=== PATIENT | female | born 1975 | race Caucasian/White ===

== ENCOUNTER → 2020-03-24 13:45 | Outpatient (BNVA) | payer OTHER, SELFPAY | PROVIDERS: Visit Provider Internal Medicine Endocrinology, Diabetes & Metabolism | DX: Z76.89 Persons encountering health services in other specified circumstances (principal) ==

== ENCOUNTER → 2020-05-04 09:46 | Outpatient (BNVA) | payer OTHER, SELFPAY | PROVIDERS: Visit Provider Internal Medicine Endocrinology, Diabetes & Metabolism | DX: Z76.89 Persons encountering health services in other specified circumstances (principal) ==

== ENCOUNTER → 2020-10-02 10:08 | Outpatient (BNVA) | payer OTHER, SELFPAY | PROVIDERS: Visit Provider Internal Medicine Endocrinology, Diabetes & Metabolism ==

== ENCOUNTER → 2021-03-31 09:20 | Outpatient (BNVA) | payer BC, SELFPAY | PROVIDERS: Visit Provider Internal Medicine ==

== ENCOUNTER 2021-04-14 14:31 | Outpatient (REF) | payer BC, SELFPAY ==
--- NOTE | ~2021-04-14 | US_ITS ---
EXAMINATION: US THYROID CLINICAL INFORMATION: Other specified hypothyroidism. COMPARISON: None TECHNIQUE: Linear transducer grayscale and color Doppler examination with attention to the region of the thyroid. FINDINGS: SIZE: Measurements of the thyroid lobes and nodules are given in sagittal, anteroposterior and transverse dimensions respectively. Right Thyroid Lobe: 3.8 x 1.2 x 1.3 cm, volume 3.1 mL. Parenchyma: The gland echotexture is heterogeneous. Thyroid vascularity is mildly increased. Left Thyroid Lobe: 3.9 x 1.0 x 0.9 cm, volume 1.8 mL. Parenchyma: The gland echotexture is heterogeneous. Thyroid vascularity is increased. Isthmus: 0.2 cm in maximum AP dimension. No focal thyroid nodule is seen. NODES: No lymphadenopathy is seen in the tissue surrounding the thyroid gland. US/US thyroid IMPRESSION: Very heterogeneous thyroid gland without focal nodules identified. There is increased vascularity consistent with thyroiditis. ACR TI-RADS RECOMMENDATION REFERENCE for thyroid nodules: Ultrasound-guided fine-needle aspiration, followup ultrasound, no further follow up. * TR1 (0 point) and TR 2 (2 points): No FNA or follow up * TR3 (3 points): FNA if more than or equal to 2.5 cm in maximum dimension, followup ultrasound in 1, 3 and 5 years if 1.5 to 2.4 cm in maximum dimension. * TR4 (4-6 points): FNA if more than or equal to 1.5 cm in maximum dimension, followup ultrasound in 1, 2, 3 and 5 years if 1 to 1.4 cm in maximum dimension. * TR5 (more than or equal to 7 points): FNA if more than or equal to 1 cm in maximum dimension, followup ultrasound every year for 5 years if 0.5 to 0.9 cm in maximum dimension. * TR3, TR4 or TR5 nodules that are below the size threshold for follow up receive no follow up.
[2021-04-14 16:43] LABS: Alanine Aminotransferase 14 U/L (0-31); Albumin Level 4.1 g/dL (3.5-5.0); Alkaline Phosphatase 57 U/L (39-117); Anion Gap 11 (12-20); Aspartate Amino Transferase 15 U/L (5-31); Bilirubin Total 0.3 mg/dL (0.0-1.0); Blood Urea Nitrogen 10 mg/dL (9-16); Calcium 8.7 mg/dL (8.4-10.2); Carbon Dioxide 26 mmol/L (22-29); Chloride 105 mmol/L (96-108); Estimated Glomerular Filt Rate > 60; Glucose Random 115 mg/dL (60-115); Potassium 3.9 mmol/L (3.3-5.1); Sodium 138 mmol/L (135-145); Total Protein 6.8 g/dL (6.5-8.0)
[2021-04-14 17:04] LABS: Free T4 (Free Thyroxine) 1.29 ng/dL (0.71-1.85); Thyroid Stimulating Hormone 0.37 uIU/mL (0.32-4.0); Vitamin D 25-OH Total 28.6 ng/mL (>30)
== END 2021-04-14 14:32 | disposition home or self-care (01) ==
LOC: HO.HMGCX 14:31
PROVIDERS: Visit Provider Internal Medicine
DX: E55.9 Vitamin D deficiency, unspecified (principal); E03.8 Other specified hypothyroidism; E06.3 Autoimmune thyroiditis; E66.9 Obesity, unspecified
CPT/HCPCS: 36415; 76536; 80053; 82306; 84439; 84443

== ENCOUNTER → 2021-07-12 14:57 | Outpatient (BNVA) | payer BC, SELFPAY | PROVIDERS: Visit Provider Internal Medicine ==

== ENCOUNTER 2021-08-05 07:02 | Outpatient (REF) | payer BC, SELFPAY ==
[2021-08-05 08:38] LABS: Estimated Average Glucose 103 mg/dL; Hemoglobin A1c % 5.2 %
[2021-08-05 08:39] LABS: Alanine Aminotransferase 11 U/L (0-31); Albumin Level 4.1 g/dL (3.5-5.0); Alkaline Phosphatase 53 U/L (39-117); Anion Gap 11 (12-20); Aspartate Amino Transferase 15 U/L (5-31); Bilirubin Total 0.7 mg/dL (0.0-1.0); Blood Urea Nitrogen 15 mg/dL (9-16); Calcium 9.5 mg/dL (8.4-10.2); Carbon Dioxide 25 mmol/L (22-29); Chloride 105 mmol/L (96-108); Cholesterol 191 mg/dL; Estimated Glomerular Filt Rate > 60; Glucose Random 104 mg/dL (60-115); HDL Cholesterol 57 mg/dL; LDL Cholesterol Calculated 114 mg/dl; Potassium 4.4 mmol/L (3.3-5.1); Sodium 137 mmol/L (135-145); Total Protein 6.8 g/dL (6.5-8.0); Triglycerides 100 mg/dL
[2021-08-05 09:02] LABS: Free T4 (Free Thyroxine) 1.42 ng/dL (0.71-1.85); Glucose Fasting 106 mg/dL (60-99); Thyroid Stimulating Hormone 0.74 uIU/mL (0.32-4.0); Vitamin D 25-OH Total 27.2 ng/mL (>30)
[2021-08-05 10:08] LABS: Glucose 1 Hour 152 mg/dL
[2021-08-05 10:21] LABS: Cortisol Random 10.6 ug/dL
[2021-08-05 10:41] LABS: Glucose 2 Hour 114 mg/dL
[2021-08-06 14:22] LABS: Adrenocorticotropic Hormone 25 pg/mL (6-50)
[2021-08-06 16:36] LABS: LDL Cholesterol Direct 116 mg/dL (<100)
== END 2021-08-05 07:03 | disposition home or self-care (01) ==
LOC: HO.LAB 07:02
PROVIDERS: PCP Physician Assistant Medical; Visit Provider Internal Medicine
DX: E66.9 Obesity, unspecified (principal); E55.9 Vitamin D deficiency, unspecified
CPT/HCPCS: 36415; 80053; 80061; 82024; 82306; 82533; 83036; 83721; 84439; 84443

== ENCOUNTER → 2021-09-23 10:30 | Outpatient (BNVA) | payer BC, SELFPAY | PROVIDERS: Visit Provider Internal Medicine | DX: Z13.89 Encounter for screening for other disorder (principal) ==

== ENCOUNTER 2022-07-02 14:29 | Outpatient (REF) | payer BC, SELFPAY ==
[2022-07-02 15:29] LABS: Alanine Aminotransferase 34 U/L (0-31); Albumin Level 4.2 g/dL (3.5-5.0); Alkaline Phosphatase 57 U/L (39-117); Anion Gap 12 (12-20); Aspartate Amino Transferase 21 U/L (5-31); Bilirubin Total 0.6 mg/dL (0.0-1.0); Blood Urea Nitrogen 13 mg/dL (9-16); Calcium 9.5 mg/dL (8.4-10.2); Carbon Dioxide 26 mmol/L (22-29); Chloride 108 mmol/L (96-108); Estimated Glomerular Filt Rate > 60; Glucose Random 90 mg/dL (60-115); Sodium 142 mmol/L (135-145); Total Protein 6.7 g/dL (6.5-8.0)
[2022-07-02 15:45] LABS: Free T4 (Free Thyroxine) 1.82 ng/dL (0.71-1.85); Thyroid Stimulating Hormone 0.06 uIU/mL (0.32-4.0); Vitamin D 25-OH Total 37.3 ng/mL (>30)
== END 2022-07-02 14:30 | disposition home or self-care (01) ==
LOC: HO.HMGCLDS 14:29
PROVIDERS: Visit Provider Internal Medicine
DX: E03.8 Other specified hypothyroidism (principal); E06.3 Autoimmune thyroiditis; E55.9 Vitamin D deficiency, unspecified; R73.02 Impaired glucose tolerance (oral)
CPT/HCPCS: 36415; 80053; 82306; 84439; 84443

== ENCOUNTER → 2022-07-04 07:18 | Outpatient (BNVA) | payer BC, SELFPAY | PROVIDERS: PCP Family Medicine; Visit Provider Internal Medicine | DX: Z13.89 Encounter for screening for other disorder (principal) ==

== ENCOUNTER 2022-08-20 10:16 | Outpatient (REF) | payer BC, SELFPAY ==
[2022-08-20 12:04] LABS: Alanine Aminotransferase 22 U/L (0-31); Albumin Level 4.1 g/dL (3.5-5.0); Alkaline Phosphatase 56 U/L (39-117); Anion Gap 10 (12-20); Aspartate Amino Transferase 20 U/L (5-31); Bilirubin Direct 0.2 mg/dL (0.0-0.5); Bilirubin Total 0.8 mg/dL (0.0-1.0); Blood Urea Nitrogen 16 mg/dL (9-16); Calcium 8.9 mg/dL (8.4-10.2); Carbon Dioxide 26 mmol/L (22-29); Chloride 108 mmol/L (96-108); Estimated Glomerular Filt Rate > 60; Glucose Random 83 mg/dL (60-115); Potassium 4.1 mmol/L (3.3-5.1); Sodium 140 mmol/L (135-145); Total Protein 6.6 g/dL (6.5-8.0)
[2022-08-20 12:20] LABS: Free T4 (Free Thyroxine) 1.29 ng/dL (0.71-1.85); Thyroid Stimulating Hormone 1.73 uIU/mL (0.32-4.0); Vitamin D 25-OH Total 27.8 ng/mL (>30)
== END 2022-08-20 10:17 | disposition home or self-care (01) ==
LOC: HO.HMGCLDS 10:16
PROVIDERS: PCP Family Medicine; Visit Provider Internal Medicine
DX: R73.02 Impaired glucose tolerance (oral) (principal); R74.01 Elevation of levels of liver transaminase levels; E06.3 Autoimmune thyroiditis; E03.8 Other specified hypothyroidism; E55.9 Vitamin D deficiency, unspecified
CPT/HCPCS: 36415; 80048; 80076; 82306; 84439; 84443

== ENCOUNTER 2023-01-02 07:41 | Outpatient (AMB) | payer BC, SELFPAY ==
--- NOTE | 2023-01-02 07:41 | MHC.OFFVIS ---
Intake Intake Visit Reasons: Discuss labs Intake Note: Discuss labs. Tomato Pulper Operator Required: No Allergies sumatriptan [From IMITREX] Allergy (Severe, Verified 01/02/23 07:52) DECREASED HEART RATE AND CHEST PRESSURE acetaminophen [From PERCOCET] Allergy (Intermediate, Verified 01/02/23 07:52) NAUSEA AND VOMITING oxycodone [From PERCOCET] Allergy (Intermediate, Verified 01/02/23 07:52) NAUSEA AND VOMITING sertraline [From ZOLOFT] Adverse Reaction (Intermediate, Verified 01/02/23 07:52) INCREASED ANXIETY Medication List - Last Reconciled 01/02/23 by Lory Sam, atorvastatin 40 mg PO BEDTIME cholecalciferol (vitamin D3) 50 mcg PO DAILY gabapentin 100 mg PO DAILY hydroxyzine pamoate 25 mg PO TID levothyroxine 125 mcg PO DAILY 30 days metformin ER 1,000 mg (2 x 500 mg) PO BID 30 days omeprazole 20 mg PO QAM pen needle, diabetic (BD Ultra-Fine Micro Pen Needle) once daily semaglutide (weight loss) (Wegovy) 1 mg (0.5 mL) subcut QWEEK 4 weeks HPI HPI Comments History of Present Illness Details 46 YO Female with a PMHx of hypothyroidism and obesity and hypothyroidism who is seen in F/U. She was previously followed by Dr. Osman. She has a history of hypothyroidism and remains on levothyroxine 125 mcg 1 tab PO daily with a half a tab on Monday. TFTs are in the hyperthyroid range. She does report symptoms of anxiety and palpitations. She also has a history of obesity. She tried phentermine in the past, but did not experience significant appetite reduction so she stopped this of her own accord. She then was prescribed Saxenda but found no decrease in appetite with this. She was switched to wegovy and remains on the 1.0 mg dose at this time. She has lost 25 lbs. She has been following a calorie restricted diet of 9420-5506 calories per day. She did have labs which revealed an elevated fasting glucose, indicating impaired glucose tolerance. Her 2 hour OGTT was WNL. Labs: Laboratory Tests 07/02/22 14:49 Sodium 142 Potassium 4.0 Creatinine 0.80 Estimated GFR > 60 AST 21 ALT 34 H 25-OH Vitamin D To jacinda 37.3 TSH 0.06 L Free T4 1.82 [facility] Medical History Chronic allergic rhinitis Dyslipidemia Hypothyroidism Impaired glucose tolerance Increased appetite Obesity (BMI 30-39.9) Restless leg syndrome Transaminitis Vitamin D deficiency Surgical History Hx of section Hx of esophagogastroduodenoscopy Hx of tubal ligation Family History Father High blood cholesterol Hypertension Mother Thyroid disease Arthritis Chronic insomnia Social History Alcohol intake: never Patient Tobacco Use Status: Never used Tobacco Assessment & Plan Assessment & Plan (1) Obesity (BMI 30-39.9): Code(s): E66.9 - Obesity, unspecified Plan: Patient with obesity. Today we extensively reviewed dietary goals of eating 1200 calories per day, and accurately counting calories. I also advised 30 minutes of moderate intensity exercise 3-5 days per week, in addition to a goal of 10,000 steps per day. Will increase her wegovy to 1.7 mg once a week. I advised she decrease the carbs in her diet and notify me of any abdominal pain. She will F/U in 3 months time. All of her questions were answered. She is in agreement with this plan of care. I spent 20 minutes in reviewing the record, seeing the patient and documenting in the medical record, including 5 minutes on the phone with the patient. 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 No changes. (3) Impaired glucose tolerance: Code(s): R73.02 - Impaired glucose tolerance (oral) Plan: Patient with impaired glucose tolerance based on elevated fasting sugar. She stopped all medication of her own accord. Will attempt Wegovy and assess for improvement. (4) Transaminitis: Code(s): R74.01 - Elevation of levels of liver transaminase levels Plan: will repeat now. (5) Vitamin D deficiency: Code(s): E55.9 - Vitamin D deficiency, unspecified Plan: Will repeat Vitamin D levels with her next set of labs and reassess. Medications: New semaglutide (weight loss) (Wegovy) administer weeks 13 through 16 of therapy 1.7 mg (0.75 mL) subcut QWEEK 30 days 3.75 mL 3RF R73.02 - Impaired glucose tolerance (oral) Discontinued metformin ER Discontinued Reason: Doctor's Order 1,000 mg (2 x 500 mg) PO BID 30 days 120 tabs 11RF R73.02 - Impaired glucose tolerance (oral) semaglutide (weight loss) (Wegovy) administer weeks 9 through 12 of therapy Discontinued Reason: Doctor's Order 1 mg (0.5 mL) subcut QWEEK 4 weeks 2 mL 0RF Telehealth Telehealth Location of provider rendering services: practice address Location of patient: address on file Patient Identification confirmed using: Name, : Yes Telehealth method: voice only Patient verbally consented to treatment: Yes Patient verbally consented to billing insurance company: Yes Patient informed of any privacy concerns related to visit: Yes Coding Level of Care Code Tele Est Pt Level 3 (10979) Diagnoses Obesity (BMI 30-39.9) E66.9 Hypothyroidism E03.8; E06.3 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
--- OUTSIDE RECORDS SUMMARY | 2023-01-02 07:42 | XMS_ITS | Continuity of Care Document ---
Author Name Unknown Organization [facility] Address [address] [place] [address]- Care Team Providers Care Manager Testing Name Role Phone Gisela SANCHEZ, Jannette Blake Primary Care Physicia n Encounter [facility] [place] Date(s): 05/10/22 - 06/09/22 [facility] [address] [place] [address]- Allergies, Adverse Reactions, Alerts Substance Reaction Severity Status haloperidol 1 ITCH full body itch. mild rash/hives to bilateral arms Acti ve Zoloft anxious Active Percocet vomiting Active Imitrex chest pressure, slow heart rate Active 1POSSIBLE ALLERGY TO HALDOL . patient recieved haldol while in PACU for Daystay procedure. roughly 40 minutes later she started itching all over, and had a mild rash/ non-raised hives present to her arms. I spoke with Attending Anesthesia Yuri Gilman regarding pt situation. Immunizations Given and Recorded Vaccine Date Status Refusal Reason tetanus/diphtheria/pertussis, acel(Tdap) 1 05/12/13 Given 1Admin Note: vis given Medications Biotin By Mouth, Daily, 0 Refills, Maintenance, 10/05/20 8:02:00 EDT, Partial fill upon patient request ifthe prescription is for a schedule II opioid drug. Start Date: 10/05/20 Status: Ordered ferrous sulfate 325 mg oral enteric coated tablet 325 mg, 1, tablet, By Mouth, Daily, # 90 tablet, Refills 0, Tot. Refills 0, Maintenance, 11/10/20 18:12:00 EDT, Route to Pharmacy Electronically, [id number], Partial fill upon patient request if the prescription is for a schedule II opio... Start Date: 11/10/20 Status: Ordered Fish Oil By Mouth, 0 Refills, Maintenance, 10/05/20 8:01:00 EDT, Partial fill upon patient request if the prescription is for a schedule II opioid drug. Start Date: 10/05/20 Status: Ordered hydrOXYzine hydrochloride 25 mg oral tablet 1 tablet = 25 mg, By Mouth, 3 times a day, PRN for anxiety, # 40 tablet, 0 Refills, Maintenance, 11/19/19 15:04:00 EDT, Tablet Start Date: 11/19/19 Status: Ordered levothyroxine 0.15 mg oral tablet By Mouth, Daily in AM, 0 Refills, Maintenance, 06/08/20 17:49:00 EST, Partial fill upon patient request if the prescription is for a schedule II opioid drug. Start Date: 06/08/20 Status: Ordered Lipitor 40 mg oral tablet 1 tablet = 40 mg, By Mouth, Daily at bedtime, 0 Refills, Maintenance, 11/19/19 15:05:00 EDT Start Date: 11/19/19 Status: Ordered metoprolol 25 mg oral tablet, extended release 25 mg, 1, tablet, By Mouth, 2 times a day, # 60 tablet, Refills 3, Tot. Refills 3, Maintenance, 11/04/20 12:58:00 EDT, Route to Pharmacy Electronically, [id number], Partial fill upon patient request if the prescription is for a schedule... Start Date: 11/04/20 Stop Date: 03/04/21 Status: Ordered Misc Rx Refills 0, Maintenance, 10/05/20 8:02:00 EDT, Supply Start Date: 10/05/20 Status: Ordered Multi Vitamin+ 0 Refills, Maintenance, 10/05/20 8:01:00 EDT, Partial fill upon patient request if the prescriptionis for a schedule II opioid drug. Start Date: 10/05/20 Status: Ordered norethindrone 5 mg oral tablet 5 mg, 1, tablet, By Mouth, Daily, # 30 tablet, Refills 0, Maintenance, 11/19/19 15:06:00 EDT Start Date: 11/19/19 Status: Ordered Vitamin D2 2000 intl units oral capsule 1 capsule = 2,000 International_Units, By Mouth, Daily, with food. Repeat Vit D level in 3 months, # 60 capsule, 1 Refills, Maintenance, 11/10/20 18:11:00 EDT, Capsule, [facility], Partial fill upon patient request if the prescription i... Start Date: 11/10/20 Status: Ordered Problem List Condition Confirmation Course Effective Dates Status Health St atus Informant Obese class I Confirmed Active Patient Care team information Care Team Personnel Name: Gisela SANCHEZ, Jannette Blake Position: Reference Physician Member Role: PCP Address: Address: [address] [place] [address] [place] [address]- Care Team Related Persons Name: TOPHER CHAKRABORTY Address: home [address] [address] Name: HELEN CAMPBELL Address: home [address] [place] [address]
--- OUTSIDE RECORDS SUMMARY | 2023-01-02 07:42 | XMS_ITS | Continuity of Care Document ---
Author Name Unknown Organization [facility] Address [address] [place] [address]- Care Team Providers Care Compliance Consultant Name Role Phone Gisela SANCHEZ, Jannette Blake Primary Care Physicia n [place] [facility] [place] - 05/08/[address] [address]- Allergies, Adverse Reactions, Alerts Substance Reaction Severity [...] Reference Physician Member Role: PCP Address: Address: [address] [place] [address] [place] [address]- Care Team Related Persons Name: TOPHER CHAKRABORTY Address: home [address] [place] [address] Name: HELEN CAMPBELL Address: home [address] [place] [address]
--- OUTSIDE RECORDS SUMMARY | 2023-01-02 07:42 | XMS_ITS | Continuity of Care Document ---
Author Name Unknown Organization [facility] Address [address] [place] [address]- Care Team Providers Care Warehouse Administrator Name Role Phone Gisela SANCHEZ, Jannette Blake Primary Care Physicia n En[place] [facility] [place]s): 08/06/22 - 09/05/22 [facility] [address] [place] [address]- Attending Physician: Jocelynn Ponce Admitting Physician: Jocelynn Ponce Referring Physician: AdmtrJocelynn Allergies, Adverse Reactions, Alerts Substance Reaction Severity [...] and Recorded Vaccine Date Status Refusal Reason influenza virus vaccine, inactivated 02/24/22 Cal rded SARS-CoV-2 (COVID-19) mRNA BNT-162b2 vac 05/19/21 Recorded SARS-CoV-2 (COVID-19) mRNA BNT-162b2 vac 08/29/20 Recorded tetanus/diphtheria/pertussis, acel(Tdap) 1 05/12/13 Given 1Admin Note: vis given Medications hydrOXYzine hydrochloride 25 mg oral tablet 1 [...] 15:05:00 EDT Start Date: 11/19/19 Status: Ordered Misc Rx Refills 0, Maintenance, 10/05/20 8:02:00 EDT, Supply Start Date: 10/05/20 Status: Ordered Problem List Condition Confirmation Course Effective Dates Status Health St atus Informant Obese class I Confirmed Active Patient Care team information Care Team Personnel Name: Jannette Higgins MD Position: Reference Physician Member Role: PCP Address: Address: [address] [place] [address] [place] [address]- Care Team Related Persons Name: TOPHER CHAKRABORTY Address: home [address] [place] [address] Name: HELEN CAMPBELL Address: home [address] [place] [address]
--- OUTSIDE RECORDS SUMMARY | 2023-01-02 07:42 | XMS_ITS | Continuity of Care Document ---
Author Name Unknown Organization [facility] Address [address] [place] [address]- Care Team Providers Care Clinical Unit Coordinator Name Role Phone Gisela SANCHEZ, Jannette Blake Primary Care Physicia n [place] [facility] [place] - 05/12/[address] [address]- Attending Physician: Jocelynn Ponce Admitting Physician: Jocelynn [...] Reference Physician Member Role: PCP Address: Address: [address] [place] [address] [place] [address]- Care Team Related Persons Name: TOPHER CHAKRABORTY Address: home [address] [address] Name: HELEN CAMPBELL Address: home [address] [place] [address]
--- OUTSIDE RECORDS SUMMARY | 2023-01-02 07:43 | XMS_ITS | Continuity of Care Document ---
Author Name Unknown Organization [facility] Address [address], [address], [address] [place] [address]- Care Team Providers Care Optometric Coordinator Name Role Phone Gisela SANCHEZ, Jannette Blake Primary Care Physicia n Encounter [facility] [place] Date(s): 10/13/22 - 11/12/22 [facility] [address], [address], [address] [place] [address]- Allergies, Adverse Reactions, Alerts Substance Reaction Severity [...] Reference Physician Member Role: PCP Address: Address: [address] [place] [address] [place] [address]- Care Team Related Persons Name: TOPHER CHAKRABORTY Address: home [address] [place] [address] Name: HELEN CAMPBELL Address: [address] [facility] [facility] [address]
--- OUTSIDE RECORDS SUMMARY | 2023-01-02 07:43 | XMS_ITS | Continuity of Care Document ---
Author Name Unknown Organization [facility] Address [address] [place] [address]- Care Team Providers Care Skip Load Driver Name Role Phone Gisela SANCHEZ, Jannette Blake Primary Care Physicia n Encounter [facility] [place] Date(s): 02/26/22 - 03/28/22 [facility] [address] [place] [address]- Attending Physician: Jocelynn Ponce Admitting Physician: Jocelynn Ponce Referring Physician: AdmtrJocelynn Allergies, Adverse Reactions, Alerts Substance Reaction Severity Status haloperidol 1 ITCH full body itch. mild rash/hives to bilateral arms Acti ve Imitrex chest pressure, slow heart rate Active Zoloft anxious Active Percocet vomiting Active 1POSSIBLE ALLERGY TO HALDOL . patient [...] I Confirmed Active Patient Care team information Personnel Name: Gisela SANCHEZ, Jannette Blake Address: Address: [address] [place] [address]
--- OUTSIDE RECORDS SUMMARY | 2023-01-02 07:43 | XMS_ITS | Continuity of Care Document ---
Author Name Unknown Organization [facility] Address [address] [place] [address]- Care Team Providers Care [place] Operator Name Role Phone Gisela SANCHEZ, Jannette Blake Primary Care Physicia n [place] [facility] [place](s): 04/25/22 - 05/25/[address] [address]- Allergies, Adverse Reactions, Alerts Substance Reaction Severity Status haloperidol 1 ITCH full body itch. mild rash/hives to bilateral arms Acti ve Percocet vomiting Active Imitrex chest pressure, slow heart rate Active Zoloft anxious Active 1POSSIBLE ALLERGY TO HALDOL . patient [...] Reference Physician Member Role: PCP Address: Address: [address] [place] [address] [place] [address]- Care Team Related Persons Name: TOPHER CHAKRABORTY Address: home [address] [place] [address] Name: HELEN CAMPBELL Address: home [address] [place] [address]
--- OUTSIDE RECORDS SUMMARY | 2023-01-02 07:44 | XMS_ITS | Continuity of Care Document ---
Author Name Unknown Organization [facility] al Address [address] [place] [address]- Care Team Providers Care Stockholder Name Role Phone Gisela SANCHEZ, Jannette Blake Primary Care Physicia n Encounter [facility] Date(s): 08/26/22 - 08/26/[address] [address]- Encounter Diagnosis Abdominal pain(Final) - 08/26/22 Discharge Disposition: A-D/C Home Attending Physician: Shivam Serrano MD Admitting Physician: Shivam Serrano MD Referring Physician: Not on Staff, Referring MD Allergies, Adverse Reactions, Alerts Substance Reaction Severity [...] 05/12/13 Given 1Admin Note: vis given Medications cefpodoxime 100 mg oral tablet 1 tablet = 100 mg, By Mouth, Every 12 hours, for 10 days, # 20 tablet, 0 Refills, Acute 09/05/22 12:20:00 EDT, 08/26/22 12:20:00 EDT, Tablet, [facility], Partial fill upon patient request if the prescription is for a schedule II opioid d... Start Date: 08/26/22 Stop Date: 09/05/22 Status: Ordered hydrOXYzine hydrochloride 25 mg oral [...] EDT, Supply Start Date: 10/05/20 Status: Ordered Toradol Inj 15 mg, Injection, IV Push Slowly, Once, STAT, 08/26/22 9:23:00 EDT, Stop date 08/26/22 9:23:00 EDT Start Date: 08/26/22 Stop Date: 08/26/22 Status: Completed Problem List Condition Confirmation Course Effective Dates Status [facility] at Informant Obese class I Confirmed Active Results Radiology Reports * Exam Date Time Procedure Performing Provider Status 08/26/22 10:[address] Abdomen and Pelvi s W/O Contrast Gee Echols; Auth (Verified) Notes: (CT Abdomen and Pelvis W/O Contrast) Reason For Exam: Flank pain, kidney stone suspected;Other: RESULT: CT Abdomen and Pelvis W/O Contrast CT Abdomen and Pelvis W/O Contrast Hx of Present Illness: seen 2 weeks ago at urgent care +UTI, finished abx but pain returned, worsening RLQ radiating to back, dysuria. Chills at home last night; Reason: Other:; Flank pain, kidney stone suspected; Clinical Question(s): Calculus; Right Side flank TECHNIQUE: Spiral CT through the abdomen and pelvis without IV contrast formatted in 3 planes. Thisstudy was performed without oral contrast. Weight- based protocol using automatic tube modulation was used to optimize exposure parameters. CTDIvol Body: 14.59 mGy, DLP Body: 657 mGy*cm. COMPARISON: 11/22/2021 FINDINGS: Corrections Caseworker View Findings, Lines and Tubes: None. Visualized Chest: Left lower lobe atelectasis. No pleural effusion. The heart is normal in size. Nopericardial effusion. Diaphragm: Normal. Liver: Normal. Gallbladder: No CT evidence of gallbladder pathology. Bile ducts: No biliary ductal dilation. Spleen: Normal. Pancreas: Normal. Adrenal glands: Normal. Kidneys and ureters: There is prominent right renal collecting system ureter extending to the levelof the bladder. No obstructing stone is identified. The left kidney is unremarkable. Bladder: Normal. Reproductive organs: There is a 4.7 x 3.5 cm left ovarian cyst.. Stomach, small bowel, and large bowel: Normal. Appendix: Normal. Peritoneum and retroperitoneum: No ascites or pneumoperitoneum. No omental or mesenteric lesions. Lymph nodes: No enlarged lymph nodes. Blood vessels: Normal. No aneurysm. Abdominal and pelvic wall: Unremarkable. Bones: No acute abnormality. IMPRESSION: Prominent right renal collecting system and ureter without evidence of obstructive stone. This may be related to pyelonephritis or recently passed stone. Consider contrast enhanced CT for better evaluation. 4.7 x 3.5 cm left ovarian cyst. Recommend pelvic ultrasound for further evaluation. A critical result message (Porter) has been communicated via the [employer] system on 08/26/2022 11:42 AM, Message ID [id number]. WSN: [id number] Ordering Physician: Shivam Serrano Dictated By: Harsh Brody MD Dictated Date/Time: 08/26/22 11:43 a Reviewed By: Harsh Brody MD Signed By: Harsh Brody MD Signed Date/Time: 08/26/22 11:43 am Transcribed By: IQRA Transcribed Date/Time: 08/26/22 11:20 am Vital Signs Most recent to oldest [Reference Range]: 1 2 3 Height 153 cm (08/26/22 10:41 AM) 153 cm (08/26/22 8:53 AM) 153 cm (08/26/22 8:50 AM) Weight 77.7 kg (08/26/22 10:41 AM) 77.7 kg (08/26/22 8:53 AM) 77.7 kg (08/26/22 8:50 AM) Oxygen Saturation [94-100 %] 100 % (08/26/22 10:41 AM) 98 % (08/26/22 8:50 AM) Pulse Rate [55-90 bpm] 76 bpm (08/26/22 10:41 AM) 95 bpm *H* (08/26/22 8:50 AM) Body Mass Index [18.5-24.99 kg/m2] 33.19 kg/m2 *>HHI* (08/26/22 10:41 AM) 33.19 kg/m2 *>HHI* (08/26/22 8:50 AM) Blood Pressure [90-138/55-84 mm Hg] 99/64mm Hg (08/26/22 10:41 AM) 125/63mm Hg (08/26/22 8:50 AM) Respiratory Rate [16-30 br/min] 18 br/min (08/26/22 10:41 AM) 16 br/min (08/26/22 10:09 AM) 17 br/min (08/26/22 8:50 AM) Temperature [96.8-100.4 DegF] 97.6 DegF (08/26/22 10:41 AM) 97.6 DegF (08/26/22 8:50 AM) Mode of Delivery (Oxygen) Room air (08/26/22 10:41 AM) Room air (08/26/22 8:50 AM) Blood pressure sites Arm, right (08/26/22 10:41 AM) Arm, left (08/26/22 8:50 AM) Temperature Route Temporal (08/26/22 10:41 AM) Temporal (08/26/22 8:50 AM) Dry Weight 77.7 kg (08/26/22 10:41 AM) 77.7 kg (08/26/22 8:53 AM) 77.7 kg (08/26/22 8:50 AM) Weight Obtained Via Standing scale (08/26/22 8:50 AM) Dry Weight Obtained Via Standing scale (08/26/22 8:50 AM) Note * Maggie SANCHEZ, Shivam Munoz: PERFORM Event Display: Patient Education Leaflets Authored Date: [id number] Kidney Infection (Adult Female) ?? [id number] Kidney Infection (Adult Female) An infection in 1 or both kidneys is called pyelonephritis. It usually happens when bacteria get into the kidney. Rarely it is caused when other germs, such as viruses, fungi, or other disease-causing organisms get into the kidney. The bacteria or other disease-causing organisms can enter the kidneys from the bladder or blood traveling from other parts of the body. A kidney infection can become serious. It can cause severe illness, scarring of the kidneys, or kidney failure if not treated correctly. Common causes for this problem include: ??? Not keeping the genital area clean and dry, which promotes the growth of bacteria ??? Wiping back to front. This drags bacteria from the rectum toward the urinary opening (urethra). ??? Wearing tight pants or underwear. This lets moisture build up in the genital area, which helps bacteria grow.??? Holding pee (urine) in for long periods of time ??? Dehydration ??? Urinary tract infections ??? Blockages of pee draining from the kidney, such as a kidney stone Kidney infections can cause symptoms similar to a bladder infection. Symptoms include: ??? Pain or burning feeling when peeing ??? Having to pee more often than normal ??? Blood in the pee (pink or red) ??? Belly (abdominal) pain or discomfort, usually in the lower belly ??? Pain in the side or back ??? Pain above the pubic bone ??? Fever or chills ??? Vomiting ??? Loss of appetite Treatment is oral antibiotics. More severe cases are treated with IM (intramuscular) or IV (intravenous) antibiotics. These are started right away and may be changed once urine culture results show the infecting organisms. Treatment helps prevent a more serious kidney infection. Symptoms of kidney i nfections can vary based on your age. Medicines Medicines can help in the treatment of a bladder infection: ??? Take antibiotics exactly as prescribed and until they are used up, even if you feel better. It's important to finish them to make sure the infection is gone. ??? Unless another medicine was prescribed, you can use [id number]-[id number] medicines for pain, fever, or discomfort. If you have chronic liver of kidney disease, talk with your [facility] provider before using these medicines. Also talk with your provider if you've ever had a stomach ulcer or digestive bleeding. Or if you are taking blood thinners. ?? Home care Here are some general care guidelines: ??? Stay home from work or school. Rest in bed until your fever breaks and you are feeling better, or as advised by your healthcare provider. ??? Drink lots of fluid unless you must restrict fluids for other medical reasons. This will force the medicine into your urinary system and flush the bacteria out of your body. Ask your provider how much you should drink. ??? Don't have sex until you have f inished all of your medicine and your symptoms are gone. ??? Don't have??caffeine, alcohol, or spicy foods. These foods may irritate the kidneys and bladder. ??? Don't take bubble baths. Sensitivity to the chemicals in bubble baths can irritate the urethra. ??? Make sure you wipe from front to backafter using the toilet. ??? Wear loose clothes and cotton underwear. Prevention These self-care steps can help prevent future infections: ??? Drink plenty of fluids to prevent dehydration and flush out the bladder. Do this unless you must restrict fluids for other health reasons, or your healthcare provider told you not to. ??? Make sure you wipe from front to back after usingthe toilet. ??? Pee more often. Don't try to hold pee in for a long time. ??? Don't wear tight-fitti ng pants and underwear. ??? Improve your diet to prevent constipation. Eat more fruits, vegetables,and fiber. Eat less junk and fatty foods. Constipation can make a urinary tract infection more likely. Talk with your healthcare provider if you have trouble with bowel movements. ??? Pee right aftersex to flush out the bladder. ?? Follow-up care Follow up with your healthcare provider, or as advised. Additional testing may be needed to make sure the infection has cleared. Close follow-up and further testing is very important to find the cause and to prevent future infections. If a urine culture was done, you will be contacted if your treatment needs to be changed. If directed, you may call to find out the results. If you had an X-ray, CT scan, or other diagnostic test, you will be told of any new findings that may affect your care. Call 911 Call 911 if any of the following occur: ??? Trouble breathing ??? Fainting or loss of consciousness??? Fast or very slow heart rate ??? Weakness, dizziness, or fainting ??? Trouble waking up or confusion ?? When to get medical care Call your healthcare provider right away if any of these occur: ??? Fever 100.4??F (38??C) or higher, or as advised by your provider ??? Not feeling better or symptoms get worse 1 to 2 days after starting antibiotics ??? Any symptom that lasts after 3 days of treatment ??? More pain in the stomach,back, side, or groin area ??? Repeated vomiting ??? Not able to take prescribed medicine due to nausea or another reason ??? Bloody, dark-colored, or bad- smelling pee ??? Trouble peeing or peeing less than normal ??? No pee for 8 hours, no tears when crying, confusion, sunken eyes, or dry mouth ?? Last Reviewed Date: 2022 ?? [id number] [employer]. All rights reserved. This information is not intended as a substitute for professional medical care. Always follow your healthcare professional's instructions. ?? CT Abdomen and Pelvis WO contrast * BHSPowerscriraad , CIS S: TRANSCRIRAAD Brody MD, Harsh H: VERIFY Event Display: Result: Authored Date: [id number] CT Abdomen and Pelvis W/O Contrast Hx of Present Illness: seen 2 weeks ago at urgent care +UTI, finished abx but pain returned, worsening RLQ radiating to back, dysuria. Chills at home last night; Reason: Other:; Flank pain, kidney stone suspected; Clinical Question(s): Calculus; Right Side flank TECHNIQUE: Spiral CT through the abdomen and pelvis without IV contrast formatted in 3 planes. Thisstudy was performed without oral contrast. Weight- based protocol using automatic tube modulation was used to optimize exposure parameters. CTDIvol Body: 14.59 mGy, DLP Body: 657 mGy*cm. COMPARISON: 11/22/2021 FINDINGS: Corrections Caseworker View Findings, Lines and Tubes: None. Visualized Chest: Left lower lobe atelectasis. No pleural effusion. The heart is normal in size. Nopericardial effusion. Diaphragm: Normal. Liver: Normal. Gallbladder: No CT evidence of gallbladder pathology. Bile ducts: No biliary ductal dilation. Spleen: Normal. Pancreas: Normal. Adrenal glands: Normal. Kidneys and ureters: There is prominent right renal collecting system ureter extending to the levelof the bladder. No obstructing stone is identified. The left kidney is unremarkable. Bladder: Normal. Reproductive organs: There is a 4.7 x 3.5 cm left ovarian cyst.. Stomach, small bowel, and large bowel: Normal. Appendix: Normal. Peritoneum and retroperitoneum: No ascites or pneumoperitoneum. No omental or mesenteric lesions. Lymph nodes: No enlarged lymph nodes. Blood vessels: Normal. No aneurysm. Abdominal and pelvic wall: Unremarkable. Bones: No acute abnormality. IMPRESSION: Prominent right renal collecting system and ureter without evidence of obstructive stone. This may be related to pyelonephritis or recently passed stone. Consider contrast enhanced CT for better evaluation. 4.7 x 3.5 cm left ovarian cyst. Recommend pelvic ultrasound for further evaluation. A critical result message (Porter) has been communicated via the [employer] system on 08/26/2022 11:42 AM, Message ID [id number]. WSN: [id number] Ordering Physician: Shivam Serrano Dictated By: Harsh Brody MD Dictated Date/Time: 08/26/22 11:43 a Reviewed By: Harsh Brody MD Signed By: Harsh Brody MD Signed Date/Time: 08/26/22 11:43 am Transcribed By: IQRA Transcribed Date/Time: 08/26/22 11:20 am Patient Care team information Care Team Personnel Name: Jannette Higgins MD Position: Reference Physician Member Role: PCP Address: Address: [address] [place] [id number] Name: Shivam Serrano MD Position: [facility] Resident Member Role: Admitting Physician Address: Address: [address] [place] [id number]- Name: Monico Bell RN Position: [facility] ED RN W/OE and Tasks Member Role: Patient Care Provider Name: Rosa Maddox Position: [facility] ED TA [facility] Member Role: Patient Care Provider Care Team Related Persons Name: TOPHER CHAKRABORTY Address: home [address] [place] [address] Name: HELEN CAMPBELL Address: home [address] [place] [address]
== END 2023-01-02 09:37 | disposition home or self-care (01) ==
LOC: HO.ENCR 07:41
PROVIDERS: PCP Family Medicine; Visit Provider Internal Medicine
DX: E66.9 Obesity, unspecified (principal); E03.8 Other specified hypothyroidism; E06.3 Autoimmune thyroiditis; R73.02 Impaired glucose tolerance (oral); R74.01 Elevation of levels of liver transaminase levels; E55.9 Vitamin D deficiency, unspecified
CPT/HCPCS: 99443

== ENCOUNTER → 2023-01-02 07:41 | Outpatient (BNVA) | payer BC, SELFPAY | PROVIDERS: PCP Family Medicine; Visit Provider Internal Medicine ==

== ENCOUNTER 2023-02-25 09:46 | Outpatient (REF) | payer BC, SELFPAY ==
[2023-02-25 11:50] LABS: Alanine Aminotransferase 16 U/L (0-31); Albumin Level 4.1 g/dL (3.5-5.0); Alkaline Phosphatase 42 U/L (39-117); Aspartate Amino Transferase 15 U/L (5-31); Bilirubin Direct 0.2 mg/dL (0.0-0.5); Bilirubin Total 0.5 mg/dL (0.0-1.0); Total Protein 6.8 g/dL (6.5-8.0)
[2023-02-25 12:08] LABS: Free T4 (Free Thyroxine) 1.29 ng/dL (0.71-1.85); Thyroid Stimulating Hormone 0.27 uIU/mL (0.32-4.0); Vitamin D 25-OH Total 53.5 ng/mL (>30)
== END 2023-02-25 09:47 | disposition home or self-care (01) ==
LOC: HO.HMGCLDS 09:46
PROVIDERS: PCP Family Medicine; Visit Provider Internal Medicine
DX: R73.02 Impaired glucose tolerance (oral) (principal); E06.3 Autoimmune thyroiditis; E03.8 Other specified hypothyroidism; E55.9 Vitamin D deficiency, unspecified
CPT/HCPCS: 36415; 80076; 82306; 84439; 84443

== ENCOUNTER 2023-04-07 15:19 | Outpatient (REF) | payer BC, SELFPAY ==
[2023-04-07 19:01] LABS: Free T4 (Free Thyroxine) 0.99 ng/dL (0.71-1.85)
== END 2023-04-07 15:20 | disposition home or self-care (01) ==
LOC: HO.HMGCLDS 15:19
PROVIDERS: PCP Family Medicine; Visit Provider Internal Medicine Endocrinology, Diabetes & Metabolism
DX: E03.8 Other specified hypothyroidism (principal); E06.3 Autoimmune thyroiditis
CPT/HCPCS: 36415; 84439; 84443

== ENCOUNTER 2023-04-19 07:50 | Outpatient (AMB) | payer BC, SELFPAY ==
[2023-04-19 07:56] VITALS: BP 100/60; PULSE 80; BMI 28.3
--- NOTE | 2023-04-19 07:56 | A.OFFVIS_ITS ---
Intake Vital Signs 04/19/23 07:56 Height 5 ft Weight 145 lb 1.027 oz BMI 28.3 BP 100/60 Blood Pressure Location Lt brachial Position Sitting Pulse 80 Pulse Source Pulse Oximeter Intake Visit Reasons: Obesity and Hypothyroidism/Larryri-CONFIRMED Intake Note: Former patient of Dr. Marshall, present today for Obesity and Hypothyroidism follow up visit. Fryer Line Helper Required: No Accompanied by: Self / Same As Patient Allergies sumatriptan [From IMITREX] Allergy (Severe, Verified 04/19/23 08:04) DECREASED HEART RATE AND CHEST PRESSURE acetaminophen [From PERCOCET] Allergy (Intermediate, Verified 04/19/23 08:04) NAUSEA AND VOMITING oxycodone [From PERCOCET] Allergy (Intermediate, Verified 04/19/23 08:04) NAUSEA AND VOMITING sertraline [From ZOLOFT] Adverse Reaction (Intermediate, Verified 04/19/23 08:04) INCREASED ANXIETY Medication List - Last Reconciled 04/19/23 by Vishnu Quezada MD atorvastatin 40 mg PO BEDTIME fexofenadine ([facility]) 180 mg PO DAILY levothyroxine 112 mcg PO DAILY pen needle, diabetic (BD Ultra-Fine Micro Pen Needle) once daily semaglutide (weight loss) (Wegovy) 1.7 mg (0.75 mL) subcut QWEEK 30 days HPI HPI Comments History of Present Illness Details 47 YO Female with a PMHx of hypothyroidism and obesity and hypothyroidism who is seen in F/U. She was previously followed by Dr. Osman. The patient last saw Dr. Marshall on 01/02/2023 She has a history of hypothyroidism and remains on levothyroxine 112 mcg 1 tab PO daily TFTs are in the hyperthyroid range. She does report symptoms of anxiety and palpitations. She also has a history of obesity. She tried phentermine in the past, but did not experience significant appetite reduction so she stopped this of her own accord. She then was prescribed Saxenda but found no decrease in appetite with this. She was switched to wegovy and remains on the 1.0 mg dose at this time. She has lost 25 lbs. She has been following a calorie restricted diet of 1317-8948 calories per day. She did have labs which revealed an elevated fasting glucose, indicating impaired glucose tolerance. Her 2 hour OGTT was WNL. Labs: Laboratory Tests 07/02/22 14:49 Sodium 142 Potassium 4.0 Creatinine 0.80 Estimated GFR > 60 AST 21 ALT 34 H 25-OH Vitamin D To jacinda 37.3 TSH 0.06 L Free T4 1.82 PFSH Medical History Chronic allergic rhinitis Dyslipidemia Hypothyroidism Impaired glucose tolerance Increased appetite Obesity (BMI 30-39.9) Restless leg syndrome Transaminitis Vitamin D deficiency Surgical History Hx of section Hx of esophagogastroduodenoscopy Hx of tubal ligation Family History Father High blood cholesterol Hypertension Mother Thyroid disease Arthritis Chronic insomnia Alcohol intake: never Patient Tobacco Use Status: Never used Tobacco Physical Exam Const Other: Thyroid gland is normal size weighs about 15 g. 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 She is currently on 112 mcg levothyroxine. She appears to be clinically and biochemically euthyroid. Plan is to continue the current management. At this point, patient returned to the care of her primary care provider and back to endocrinology as needed (2) Obesity (BMI 30-39.9): Code(s): E66.9 - Obesity, unspecified Plan: Currently on wegovy. 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
== END 2023-04-19 08:12 | disposition home or self-care (01) ==
PROVIDERS: PCP Family Medicine; Visit Provider Internal Medicine Endocrinology, Diabetes & Metabolism
DX: E06.3 Autoimmune thyroiditis (principal); E66.9 Obesity, unspecified; Z68.28 Body mass index [BMI] 28.0-28.9, adult
CPT/HCPCS: 99213

== ENCOUNTER → 2023-04-19 07:50 | Outpatient (BNVA) | payer BC, SELFPAY | PROVIDERS: PCP Family Medicine; Visit Provider Internal Medicine Endocrinology, Diabetes & Metabolism ==

== ENCOUNTER 2024-05-10 09:30 | Emergency (ER) | payer BC, SELFPAY ==
--- OUTSIDE RECORDS SUMMARY | 2024-05-10 09:33 | XMS_ITS | Data Portability ---
Author Organization [place] - [facility] [id number] Address [address] [place] [id number] Care Team Providers Care Veterinarian Epidemiologist Name Role Phone JERRYMELISSA LEESMorganROWAN Primary Care Provider [phone] Assessment No assessment recorded. Plan of Treatment Reminders Order Date Submit Date Provider Last Modified By Organization Details Last Modified Time Details Appointments None record ed. Lab None record ed. Referral None record ed. Procedures None record ed. Surgeries None record ed. Imaging None record ed. Medication Orders None record ed. Patient TargetsNo targets recorded. Patient InstructionsNo instructions recorded. Reason for Referral None Reported. Problems Name Problem SNOMED Code Status Onset Date Resolution Date Notes Provider Name and Address Organization Details Recorded Time Hypothyroidism 42886263 Active 2022 Maddie duncan [place] - [facility] 10:41:51 Hypercholestero lemia 79780994 Active 2022 Maddie duncan [place] - [facility] 10:41:57 Problem Notes None recorded. Procedures Surgical History Date Name Laterality Status Provider Name and Address Organization Details Recorded Time 3 Laceration, Simple Repair, (scalp/neck /trunk/vivek akin/extre mities) 0.1-2.5cm completed Cate Alcazar MD [facility] [place], [address], [place] - [facility] 10/18/2022 11:12:44 Imaging Results None recorded. Procedure Notes None recorded. Medical Equipment None Reported. Allergies Allergen ID Allergen Name Allergen Category Reaction Reaction Severity Criticality Documentation Date Start Date Code Code System Note Provider Name and Address Organization Details Recorded Time 115914 Imitrex medicatio n Not available Not available Not available 10/18/2022 06294 3 RxNorm Maddie Paulino null, [place] - [facility] 3 10:39:28 [id number] acetamino phen / oxycodone medicatio n Not available Not available Not available 10/18/2022 49605 3 RxNorm Maddie Paulino null, [place] - [facility] 10:39:32 262300 Zoloft medicatio n Not available Not available Not available 10/18/2022 36821 RxNorm Maddie Paulino null, [place] - [facility] 10:39:36 Medications Name Sig Start Date Stop Date Status Note LastModified by Organization Details LastModified Time atorvastati n 40 mg tablet TAKE ONE TABLET BY MOUTH AT BEDTIME 10/18 completed Not Available Not Available Not Available cefpodoxime 100 mg tablet TAKE ONE TABLET BY MOUTH EVERY 12 HOURS FOR 10 DAYS 10/18 completed Not Available Not Available Not Available famotidine 40 mg tablet TAKE ONE TABLET BY MOUTH TWICE A DAY active Not Available Not Available No t Available levothyroxi ne 125 mcg tablet TAKE ONE TABLET BY MOUTH EVERY DAY active Not Available Not Available No t Available levothyroxi ne 150 mcg tablet TAKE ONE TABLET BY MOUTH DAILY MONDAY THROUGH MONDAY AND TAKE ONE-HALF TABLET MONDAY. 10/18 completed Not Available Not Available Not Available gabapentin 300 mg capsule TAKE ONE CAPSULE BY MOUTH AT BEDTIME active Not Available Not Available No t Available gabapentin 100 mg capsule TAKE ONE CAPSULE BY MOUTH AT BEDTIME 10/18 completed Not Available Not Available Not Available dicyclomine 10 mg capsule TAKE ONE CAPSULE BY MOUTH FOUR TIMES A DAY ( BEFORE MEALS AND AT BEDTIME ) NEEDED FOR IBS 10/18 completed Not Available Not Available Not Available hydroxyzine pamoate 25 mg capsule TAKE TWO CAPSULES BY MOUTH EVERY EVENING active Not Available Not Available No t Available escitalopra m 10 mg tablet TAKE ONE TABLET BY MOUTH EVERY DAY 10/18 completed Not Available Not Available Not Available nitrofurant oin monohydrate /macrocryst als 100 mg capsule TAKE ONE CAPSULE BY MOUTH TWICE A DAY FOR 7 DAYS 10/18 completed Not Available Not Available Not Available Saxenda 3 mg/0.5 mL (18 mg/3 mL) subcutaneou s pen injector INJECT UNDER THE SKIN ONCE DAILY:WEE K 1=0.6MG;W SAXMAN 2=1.2MG;W SAXMAN 3=1.8MG;W SAXMAN 4=2.4MG;T HEN 3MG DAILY THEREAFTE R 10/18 completed Not Available Not Available Not Available BD Ultra-Fine Micro Pen Needle 32 gauge x 1/4 USE ONCE DAILY DIRECTED 10/18 completed Not Available Not Available Not Available EluRyng 0.12 mg-0.015 mg/24 hr vaginal ring INSERT ONE RING VAGINALLY ONCE A MONTH AND LEAVE IN PLACE FOR 3 WEEKS AND REMOVE FOR 1 WEEK DIRECTED 10/18 completed Not Available Not Available Not Available Wegovy 0.25 mg/0.5 mL subcutaneou s pen injector INJECT 0.25 MG 0.5ML) UNDER THE SKIN ONCE EVERY WEEK; ADMINISTE R WEEKS 1 THROUGH 4 OF THERAPY active Not Available Not Available No t Available Vitals Date Recorded Body height Body mass index (BMI) Body weight Respiratory rate Body temperature Oxygen saturation Oxygen saturation in Arterial blood by Pulse oximetry Heart rate Systolic blood pressure Diastolic blood pressure Provider Name and Address Organization Details Last Updated DateTime 3 152.4 cm 33 kg/m2 11878.1 1 g 18 /min 97 [degF] 100 % 100 % 80 /min 111 mm[Hg] 73 mm[Hg] Maddie VERAS [facility] 10:45:23 Social History Question Answer Notes LastModified by Organizat ion Details LastModified Time Tobacco Smoking Status Never Smoker Maddie duncan [place] - [facility] 10/18/2022 10:43:11 What Is Your Level Of Alcohol Consumption? None Information not available 10/18/2022 Do You Use Any Illicit Or Recreational Drugs? No Information not available 10/18/2022 Have You Recently Traveled Abroad? No Information not available 10/18/2022 Do You Or Have You Ever Used Any Other Forms Of Tobacco Or Nicotine? No Information not available 10/18/2022 Sex: Unknown Functional Status None recorded. Mental Status None recorded. Family History Relationship Description Onset Age of this Age Resolved Age Notes LastModified by Organization Details LastModified Time Father Hypercholest erolemia [email or web address] Not available 2022 10:42:24 Mother Hypertensive disorder emonfette Not available 2022 10:42:33 Mother Hypothyroidi sm emonfette Not available 2022 10:42:46 Mother Anxiety disorder emonfette Not available 2022 10:42:53 Mother Arthritis emonfette Not availab le 10/18/2022 10:43:00 Medical History No medical history recorded. Gynecological History Statement/Question Response Date of LMP 09/18/2022 Is there any chance of ? No Obstetrics History GPAL:G 0 P 0 0 0 0 Immunizations Vaccine Type Date Status Note Provider Nam e and Address Organization Details Recorded Time Influenza, MDCK, quadrivalent, PF 9 completed Maddie Monfette null, [place] - [facility] 10/18/2022 10:39:18 Influenza, MDCK, quadrivalent, PF 2 completed Maddie Monfette null, [place] - [facility] 10/18/2022 10:39:18 Influenza, MDCK, quadrivalent, PF 1 completed Maddie Monfette null, [place] - [facility] 10/18/2022 10:39:18 COVID-19, mRNA, LNP-S, PF, 30 mcg/0.3 mL dose 1 completed Maddie Monfette null, [place] - [facility] 10/18/2022 10:39:18 COVID-19, mRNA, LNP-S, PF, 30 mcg/0.3 mL dose 1 completed Maddie Monfette null, [place] - [facility] 10/18/2022 10:39:18 Influenza, split virus, trivalent, preservative 9 completed Maddie Monfette null, [place] - [facility] 10/18/2022 10:39:18 Influenza, split virus, trivalent, preservative 7 completed Maddie Monfette null, [place] - [facility] 10/18/2022 10:39:18 Influenza, split virus, trivalent, preservative 6 completed Maddie Monfette null, [place] - [facility] 10/18/2022 10:39:18 Influenza, split virus, trivalent, preservative 4 completed Maddie Monfette null, [place] - [facility] 10/18/2022 10:39:19 Td (adult), 2 Lf tetanus toxoid, preservative free, adsorbed 4 completed Maddie Monfette null, [place] - [facility] 10/18/2022 10:39:19 Influenza, split virus, quadrivalent, PF 9 completed Maddie Monfette null, [place] - [facility] 10/18/2022 10:39:19 Td (adult), 2 Lf tetanus toxoid, preservative free, adsorbed 3 completed Cate Alcazar MD [address] [place] [address], [id number] [place] - [facility] 10/19/2022 14:01:40 Past Encounters Encounter ID Performer Location Encounter Start Date Encounter Closed Date Diagnosis/Indication Diagnosis SNOMED-CT Code Diagnosis ICD10 Code [id number] [address] [address] 10/01/2017 11:00:56 10/01/2017 11:33:56 [id number] Cate Alcazar MD [address] [address] 10/18/2022 10:06:35 10/18/2022 11:38:33 Laceration of finger of left hand [id number] S61.211A Health Concerns Section Related Observation LastModified by Organization Detai ls LastModified Time None Recorded Concern Status LastModified by Organization Details LastModified Time None Recorded Advance Directives Directive None Recorded Payers Encounter Date Sequence Insurance Name Policy Number Policy Sauceda Covered Member ID Sauceda Member ID Guarantor Name 10/01/2017 1 [facility] [id number] Merged With [facility] [id number] Merged With [facility] 10/18/2022 [facility] Shani Valenzuela [id number] Shani Valenzuela 10/18/2022 1 [facility] [id number] Shani Valenzuela [id number] Shani Valenzuela Notes Date Note Type Note Provider Name and Address Organization Details Recorded Time 3 text/html Wound / LacerationReported bypatient.Location:Woun d # 1 finger; Wound # 2 Quality:laceration; Wound 1 size in cm 1; not bleeding Associated Symptoms:no fever; no bruising Vaccination StatusNo tetanus vaccine within the past 5 years Left 2nd digit Cate Alcazar [facility] [address] [facility] [place], [phone], [place] - [facility] 10/19/2022 14:04:20 OBGyn Episode No OBEpisode recorded.
[2024-05-10 10:05] VITALS: BP 133/80; PULSE 70; RESP 18; TEMP 36.6; O2SAT 100; BMI 27.9
[2024-05-10 10:20] LABS: MANUAL DIFF FLAG NO
[2024-05-10 10:21] LABS: Basophils Percent Auto 0.5 % (0-2); Eosinophils Absolute Auto 0.1 X10*3/uL (0.0-0.4); Eosinophils Percent Auto 1.5 % (0-4); Hematocrit 38.7 % (37.0-47.0); Hemoglobin 13.1 g/dl (12.0-16.0); Imm Gran Abs Auto 0.02 X10*3/uL (0.00-0.03); Imm Gran Pct Auto 0.5 % (0.0-0.4); Lymphocytes Absolute Auto 1.2 X10*3/uL (1.2-4.9); Lymphocytes Percent Auto 29.7 % (20-40); Mean Corpuscular HGB Conc 33.9 g/dl (31.0-35.0); Mean Corpuscular Volume 88.8 fL (80.0-98.0); Mean Platelet Volume 10.5 fL (9.4-12.3); Monocytes Absolute Auto 0.3 X10*3/uL (0.1-1.2); Monocytes Percent Auto 7.8 % (2-11); Neutrophils Absolute Auto 2.5 x10*3/uL (2.0-8.3); Platelet Count 183 X10*3/uL (160-400); Red Blood Count 4.36 X10*6/uL (4.20-5.50); White Blood Count 4.1 X10*3/uL (4.8-10.8)
[2024-05-10 10:40] LABS: Anion Gap 10 (12-20); Blood Urea Nitrogen 16 mg/dL (9-16); Calcium 8.7 mg/dL (8.4-10.2); Carbon Dioxide 27 mmol/L (22-29); Chloride 105 mmol/L (96-108); Creatinine Clr Calc Pharmacy 83.5; Estimated Glomerular Filt Rate > 60; Glucose Random 96 mg/dL (60-115); IDNOW Serial# 16C4AD1C; Influenza A Negative (Negative); Influenza B2 Negative (Negative); Potassium 3.8 mmol/L (3.3-5.1); Sodium 138 mmol/L (135-145)
--- NOTE | 2024-05-10 14:36 | ED.HA ---
HPI - Headache General Chief Complaint: Headache Stated Complaint: headache, vision blurry Time Seen by Provider: 05/10/24 14:36 Source: patient Mode of arrival: ambulatory Limitations: no limitations History of Present Illness ED Provider: Anton Greenberg RAILROAD INSPECTOR HPI Narrative: Patient is a 49-year-old female past medical history of migraine headaches for which she has typically used OTC analgesics in the past, reports that sumatriptan has resulted in bradycardia chest pressure and intense flushing in the past therefore she does not take this. She reports that her current headache has been intermittent over the past 4 days. Describes it as a severe pain to the bilateral frontal region radiating to the posterior head with a dull throbbing sensation. She admits to having some mild rhinorrhea and cough associated with this that began yesterday She is tested for COVID-19 2 days ago at [facility] which she states is negative, and she took a home test today as well which was negative. She denies any sick contacts. She expresses concern that she will be traveling next week and wants to have this under control beforehand. Denies any red flag symptoms including fevers, chills, neck stiffness, malaise, aphasia, weakness, poor coordination, descriptors such as ?the worst headache ever ?or ?thunderclap?. Denies dizziness, lightheadedness, vision changes, chest pain, shortness of breath, numbness or tingling of the extremities. Related Data Home Medications ?Medication ?Instructions ?Recorded ?Confirmed atorvastatin 40 mg tablet 40 mg PO BEDTIME 10/02/20 01/02/23 fexofenadine 180 mg tablet 180 mg PO DAILY 04/19/23 ([facility]) Previous Rx's ?Medication ?Instructions ?Recorded pen needle, diabetic 32 gauge x #100 ea 03/17/2206/01 (BD Ultra-Fine Micro Pen Needle) semaglutide (weight loss) 1.7 1.7 mg (0.75 mL) subcut QWEEK 30 01/02/23 mg/0.75 mL subcutaneous pen days #3.75 mL injector (Wegovy) levothyroxine 112 mcg tablet 112 mcg PO DAILY #30 tabs 02/27/23 ldjpvpfkvh-khmsdwqyelmzh-atupfxpr 1 cap PO Q8H PRN pain #14 caps 05/10/24 50 mg-300 mg-40 mg capsule (Fioricet) Allergies Allergy/AdvReac Type Severity Reaction Status Date / Time sumatriptan [From IMITREX] Allergy Severe DECREASED Verified 05/10/24 10:08 HEART RATE AND CHEST PRESSURE oxycodone [From PERCOCET] Allergy Intermediate NAUSEA AND Verified 05/10/24 10:08 VOMITING sertraline [From ZOLOFT] AdvReac Intermediate INCREASED Verified 05/10/24 10:08 ANXIETY Review of Systems Review of Systems: Yes all other systems are reviewed and are negative [facility] Past Medical History Attestation statement: The following information was validated with the patient. Source: old records reviewed Medical History Transaminitis Impaired glucose tolerance Vitamin D deficiency Increased appetite Restless leg syndrome Chronic allergic rhinitis Dyslipidemia Obesity (BMI 30-39.9) Hypothyroidism Surgical History Hx of esophagogastroduodenoscopy Hx of tubal ligation Hx of section Family History Family History Father High blood cholesterol Hypertension Mother Thyroid disease Arthritis Chronic insomnia Social History Social History Alcohol intake: never Patient Tobacco Use Status: Never used Tobacco Advance Directives: No Advance Directives Information Provided: Yes Physical Exam Vital Signs: Vital Signs: Last Vital Signs Temp 97.9 F 05/10/24 10:05 Pulse 70 05/10/24 10:05 Resp 18 05/10/24 10:05 BP 133/80 05/10/24 10:05 Pulse Ox 100 05/10/24 10:05 O2 Del Method Room Air 05/10/24 10:05 BMI result Body Mass Index 27.9 Appearance: Alert.?Oriented to person, place and time. No acute distress.?Normal affect. Head: Normocephalic, atraumatic Eyes: Pupils equal, round and reactive to light. EOMI. No nystagmus. No ptosis. No tenderness to palpation over the temporal region. ENT: External auditory canal normal tympanic membrane pearly brooks and intact bilaterally. Oropharynx normal. No sinus tenderness upon palpation. Neck: Normal inspection.? Neck supple. No nuchal rigidity. CVS: Heart sounds normal. Normal heart rate and rhythm.? Pulses normal.?? Respiratory: No respiratory distress.? Lung sounds clear to auscultation bilaterally?? Abdomen: Soft and non-tender. Normoactive bowel sounds. ?? Skin: Skin warm and dry.? Normal skin color.? ?? Extremities: No lower extremity edema.? Neuro: Moves all extremities spontaneously. Sensation intact bilaterally. CN II-XII intact. No focal neuro deficits. Ambulatory with steady gait. Course Reevaluation(s) Reevaluation #1: Patient with a history of recurrent and or similar headache, there is no substantial change to typical headache pattern, there are no red flag symptoms, no focal neurological deficits, no high risk comorbidities, at this time feel that patient is stable for discharge home Medications Administered Discontinued Medications Generic Name Dose Route Start Last Admin Trade Name Freq PRN Reason Stop Dose Admin Acetaminophen/Butalbital/Caffeine 1 tab 05/10/24 14:56 05/10/24 15:07 Butalb/Acetamin/Caff 50/325/40 Tablet PO 05/10/24 14:57 1 tab ONCE ONE Administration Medical Decision Making Medical Decision Making [facility] Narrative: Patient is a 49-year-old female with past medical history of impaired glucose tolerance, vitamin-D deficiency, restless leg syndrome, chronic allergic rhinitis, dyslipidemia, obesity, hypothyroidism presenting to emergency department for evaluation of headache as per HPI. Reviewed records from [facility], ED visit 05/08/2024 with 2 day headache for which she was treated with Toradol IM and Reglan orally with improvement, discharged home with a prescription for oral Reglan advised to follow-up with PCP, head CT was without acute intracranial pathology. Reviewed serum labs obtained prior to my assumption of care today, CBC is without leukocytosis anemia or thrombocytopenia. No electrolyte derangement. No SHANICE. Influenza testing was obtained and is negative, discussed possibility for COVID-has headaches may be a symptom of such, she declines addition testing for this as her home test today was negative. I would like to trial oral abortive therapy at this time especially given her upcoming travels, may be helpful for her to have something to take as OTC analgesics and oral Reglan had not proven beneficial over the past 2 days. Patient physical exam at this time most concerning for migraine headache. History without concerning exposures, not exacerbated or worsened by exertion, no red flag symptoms, no vision changes, under the age of 50, no new immunocompromising conditions, no focal neurological abnormalities. Improvement in headache after receiving Fioricet will discharge home with a short course. Advised outpatient follow-up with primary care doctor and discussion regards to further management with alternative abortive therapies if this does not continue to be beneficial for her and/or preventative therapies. Discussed strict return precautions. All questions answered. Differential Diagnosis Differential Diagnoses: The differential diagnosis associated with the presentation includes (SDH, SAH, ICH, METAL FINISH INSPECTOR mass, meningitis, encephalitis, CVA, GCA, migraine, headache) Differential diagnosis unlikely to include SDH, SAH, ICH, METAL FINISH INSPECTOR mass given negative CT imaging 2 days ago. No nuchal rigidity to suggest meningitis, no severe neck pain or CVA type symptoms to suggest cervical artery dissection/ CVA, pain not localized to temporal region, lower suspicion for GCA. Admission/Observation Consideration of admission/observation: Escalation of care including admission/observation considered (See narrative above and course narrative for further detail) Lab Data MDM Lab Attestation statement: I reviewed the patient's lab results. (See narrative above) 05/10/24 10:14 05/10/24 10:14 Labs: Lab Results 05/10/24 Range/Units 10:14 WBC 4.1 L (4.8-10.8) X10*3/uL RBC 4.36 (4.20-5.50) X10*6/uL Hgb 13.1 (12.0-16.0) g/dl Hct 38.7 (37.0-47.0) % MCV 88.8 (80.0-98.0) fL MCH 30.0 (27.0-33.0) pg MCHC 33.9 (31.0-35.0) g/dl RDW 14.0 (11.0-16.0) % Plt Count 183 (160-400) X10*3/uL MPV 10.5 (9.4-12.3) fL Immature Gran % (Auto) 0.5 H (0.0-0.4) % Neut % (Auto) 60.0 (45-73) % Lymph % (Auto) 29.7 (20-40) % [place] % (Auto) 7.8 (2-11) % Eos % (Auto) 1.5 (0-4) % Baso % (Auto) 0.5 (0-2) % Lymph # (Auto) 1.2 (1.2-4.9) X10*3/uL [place] # (Auto) 0.3 (0.1-1.2) X10*3/uL Eos # (Auto) 0.1 (0.0-0.4) X10*3/uL Baso # (Auto) 0.0 (0.0-0.2) X10*3/uL Abs Immat Gran (auto) 0.02 (0.00-0.03) X10*3/uL Absolute Neuts (auto) 2.5 (2.0-8.3) x10*3/uL Absolute Nucleated RBC 0.000 (0.0-0.012) X10*3/uL Nucleated RBC % (auto) 0.0 (0.0-0.2) /100WBC Sodium 138 (135-145) mmol/L Potassium 3.8 (3.3-5.1) mmol/L Chloride 105 (96-108) mmol/L Carbon Dioxide 27 (22-29) mmol/L Anion Gap 10 L (12-20) BUN 16 (9-16) mg/dL Creatinine 0.70 (0.5-1.4) mg/dL Estim Creat Clear Calc 83.5 Estimated GFR > 60 Random Glucose 96 (60-115) mg/dL Calcium 8.7 (8.4-10.2) mg/dL Influenza Type A (VÍCTOR) Negative (Negative) Influenza Type B (VÍCTOR) Negative (Negative) Influenza A & B Note See Note External Record Review External record reviewed: Outpatient record and Prior outpatient radiology CT head 05/08/2024 ([facility]) RESULT: CT Head/Brain W/O Contrast CT Head/Brain W/O Contrast INDICATION: Hx of Present Illness: severe GAMBOA started yesterday. took tylenol before coming. no fever.; Reason: Headache(s); Clinical Question(s): Hematoma TECHNIQUE: Noncontrast head CT using axial technique and reconstructed in axial and coronal planes. Iterative reconstruction techniques are used to optimize dose and image quality. CTDIvol Head: 46.33 mGy, DLP Head: 793 mGy*cm. COMPARISON: None. FINDINGS: Geophysical Laboratory Director view findings, lines and tubes: None. BRAIN AND EXTRA-AXIAL SPACES: No parenchymal hemorrhage, midline shift, or mass effect. Brooks-white matter differentiation is well preserved. No acute infarct. Ventricles, sulci, and basilar cisterns are normal. No white matter lesions. No subarachnoid hemorrhage. No subdural or epidural collection. CALVARIUM, SKULL BASE, AND SOFT TISSUES: No fractures or suspicious bony lesions. The paranasal sinuses and mastoid air cells are clear. Visualized orbits and globes are intact. The extracranial soft tissues are unremarkable. IMPRESSION: No acute intracranial pathology. Tests considered The following testing was considered but not selected: See narrative above for further detail, repeat CT head deferred, no indication for acute changes, no trauma. Prescription Management I considered prescription management with: Pain Medication Discharge Plan Discharge Clinical Impression: Migraine Patient Disposition: Home, Self-Care Instructions: Migraine Headache (ED) Prescriptions: New mpiezareow-kbmmhstcgbsvo-eklp [Fioricet] 50-300-40 mg capsule 1 cap PO Q8H PRN (Reason: pain) Qty: 14 0RF No Action (DME) pen needle, diabetic [BD Ultra-Fine Micro Pen Needle] 32 gauge x 1/4 needle See Rx Instructions .ROUTE .MEDSUPPLY Qty: 100 11RF Rx Instructions: once daily levothyroxine 112 mcg tablet 112 mcg PO DAILY Qty: 30 6RF atorvastatin 40 mg tablet 40 mg PO BEDTIME Wegovy 1.7 mg/0.75 mL pen injector 1.7 mg subcut QWEEK 30 Days Qty: 3.75 3RF Rx Instructions: administer weeks 13 through 16 of therapy fexofenadine [Gilda [facility]] 180 mg tablet 180 mg PO DAILY Referrals: Jannette Higgins MD [Primary Care Provider] - Print Language: Uruguayan
[2024-05-10] MEDS: Butalb/Acetamin/Caff 50/325/40 TABLET 1 TAB PO (15:07)
[2024-05-10 17:33] VITALS: BP 133/80; PULSE 70; RESP 18; TEMP 36.6; O2SAT 100
== END 2024-05-10 17:33 | disposition home or self-care (01) ==
PROVIDERS: Emergency Provider Student in an Organized Health Care Education/Training Program; PCP Family Medicine
DX: G43.909 Migraine, unspecified, not intractable, without status migrainosus (principal); R00.1 Bradycardia, unspecified; E03.9 Hypothyroidism, unspecified; E78.5 Hyperlipidemia, unspecified; Z79.899 Other long term (current) drug therapy
CPT/HCPCS: 80048; 85025; 87502; 99283